=== PATIENT | female | born 1995 | race Caucasian/White ===

== ENCOUNTER 2018-08-09 19:49 | Emergency (ER) | payer MEDICAID ==
[~2018-08-09] VITALS: Ht 170.2 cm; Wt 61.8 kg
[2018-08-09 19:50] VITALS: BP 120/80
--- NOTE | 2018-08-09 20:05 | NUR ---
PT. AMBULATORY TO [id number] WITH STEADY GAIT FROM TRIAGE.
[2018-08-09] MEDS ORDERED: KETOROLAC 30 MG/1 ML ONE (20:51)
[2018-08-09] MEDS ORDERED: KETOROLAC 30 MG/1 ML IM ONE (21:00)
== END 2018-08-09 22:21 | disposition home or self-care (01) ==
LOC: ED 22:05
DX: M54.5 Low back pain (principal); Z72.9 Problem related to lifestyle, unspecified; F17.200 Nicotine dependence, unspecified, uncomplicated; F15.10 Other stimulant abuse, uncomplicated
CPT/HCPCS: 72110; 96372; 99283; J1885